=== PATIENT | female | born 1990 | race Caucasian/White ===

== ENCOUNTER 2016-07-04 23:51 | Emergency (ER) | payer BC ==
[~2016-07-04] VITALS: Ht 167.6 cm; Wt 53.0 kg
[~2016-07-04 23:51] MED LIST: CEPH-443 PO; FERR27TA; IBUP400T22 PO; PREN1TAB49
[2016-07-04 23:54] VITALS: Ht 167.6 cm; Wt 53.0 kg
--- NOTE | 2016-07-05 03:11 | ERD ---
ER Documentation Chief Complaint Date/Time DATE: 07/05/16 TIME: 03:09 Chief Complaint here to get right thigh stitches removed HPI This is a 26-year-old female presents to the ER for suture removal. Patient got her sutures 10 days ago she denies any fevers or chills. Patient obtained laceration while jumping over a fence. She took all of her antibiotics. She denies any redness or discharge from her wound. ROS 12 point review of systems was done, all negative except per HPI. Medications Home Meds Active Scripts Ibuprofen* (Motrin*) 400 Mg Tab, 400 MG PO Q6, #30 TAB Prov:LUCIUS STALLWORTH PA-C 06/23/16 Cephalexin* (Keflex*) 500 Mg Capsule, 500 MG PO QID for 7 Days, CAP Prov:LUCIUS STALLWORTH PA-C 06/23/16 Reported Medications Ferrous Sulfate (Iron) 1 Tab Tablet 10/15/10 Vits W-Ca,Fe,Fa(<1MG) () 1 Tab Tablet 10/15/10 Allergies Allergies: Coded Allergies: No Known Drug Allergy (Verified Allergy, Unknown, 06/22/16) PMhx/Soc History of Surgery: Yes (Episiotomy) Anesthesia Reaction: No Hx Neurological Disorder: No Hx Respiratory Disorders: No Hx Cardiac Disorders: No Hx Psychiatric Problems: No Hx Miscellaneous Medical Probl: Yes (UTI) Hx Alcohol Use: No Hx Substance Use: No Hx Tobacco Use: No Physical Exam Vitals Vital Signs Date Time Temp Pulse Resp B/P Pulse Ox O2 Delivery O2 Flow Rate FiO2 07/04/16 23:54 98.3 56 18 117/66 100 Physical Exam Const: [] Head: Atraumatic Resp: Clear to auscultation bilaterally Cardio: Regular rate and rhythm, no murmurs Skin: 4 simple interrupted sutures on the right upper posterior thigh Neur: Awake and alert Psych: Normal Mood and Affect Procedures/MDM Suture Removal by me: Sutures removed with tweezers and scissors without incident. Wound shows no evidence of infection, foreign body, neurologic injury, vascular injury, open joint or tendon laceration. Patient to follow up PRN. Departure Diagnosis: Primary Impression: Visit for suture removal Condition: Stable Patient Instructions: Suture Removal, No Complication Additional Instructions: Call your primary care doctor TOMORROW for an appointment during the next 1-2 days.See the doctor sooner or return here if your condition worsens before your appointment time. KYLAH BRITT Jul 05, 2016 03:10
== END 2016-07-05 03:30 | disposition home or self-care (01) ==
LOC: FTE 23:51
DX: Z48.01 Encounter for change or removal of surgical wound dressing (principal)
CPT/HCPCS: 99281

== ENCOUNTER 2018-01-27 22:53 | Emergency (ER) | END 2018-01-27 23:56 | disposition home or self-care (01) ==

== ENCOUNTER 2018-11-12 08:14 | Emergency (ER) | payer BC ==
[~2018-11-12] VITALS: Wt 57.4 kg
[~2018-11-12 08:14] MED LIST changes: +CYCL10TA7 PO; +HYDR-4011 PO; +IBUP-1542 PO; +IBUP-1561 PO; -IBUP400T22 PO
[2018-11-12 08:16] VITALS: BP 114/69; PULSE 67; RESP 18
[2018-11-12] MEDS ORDERED: CIPR500T4 PO (09:25)
[2018-11-12] MEDS ORDERED: CEFTRIAXONE 1 GM INJ IM ONE (09:30)
[2018-11-12] MEDS ORDERED: LIDOCAINE 1% (MPF) 5 ML VIAL INJ ONE (09:30)
--- NOTE | 2018-11-12 09:31 | ERD ---
ER Documentation Chief Complaint Chief Complaint back pain HPI 28-year-old female presenting with back pain x2 days. Patient states she has some mild burning with urination. Denies hematuria. Denies fevers. States that the pain is located only in the left back and is not in the right side. Has some mild significant tenderness with abdominal pain. Has never had this before. Medical problems denies. NKDA. Surgical history denies. Social history denies ROS All systems reviewed and are negative except as per history of present illness. Medications Home Meds Active Scripts Ciprofloxacin Hcl* (Ciprofloxacin Hcl*) 500 Mg Tablet, 500 MG PO BID for 10 Days, TAB Prov:RAMIRO CONTRERAS PA-C 11/12/18 Hydrocodone/Acetaminophen ([place] 5-325 Tablet) 1 Each Tablet, 1 TAB PO Q6H PRN for SEVERE PAIN LEVEL 7-10, #20 TAB Prov:EPIFANIO VASQUEZ NP 01/27/18 Cyclobenzaprine Hcl* (Cyclobenzaprine Hcl*) 10 Mg Tablet, 10 MG PO TID, #15 TAB Prov:EPIFANIO VASQUEZ NP 01/27/18 Ibuprofen* (Motrin*) 600 Mg Tab, 600 MG PO Q6H PRN for PAIN AND OR ELEVATED TEMP, #30 TAB Prov:EPIFANIO VASQUEZ NP 01/27/18 Ibuprofen* (Motrin*) 400 Mg Tab, 400 MG PO Q6, #30 TAB Prov:LUCIUS STALLWORTH PA-C 06/23/16 Cephalexin* (Keflex*) 500 Mg Capsule, 500 MG PO QID for 7 Days, CAP Prov:LUCIUS STALLWORTH PA-C 06/23/16 Reported Medications Ferrous Sulfate (Iron) 1 Tab Tablet 10/15/10 Vits W-Ca,Fe,Fa(<1MG) () 1 Tab Tablet 10/15/10 Allergies Allergies: Coded Allergies: No Known Drug Allergy (Verified Allergy, Unknown, 06/22/16) PMhx/Soc Medical and Surgical Hx: pt denies Medical Hx, pt denies Surgical Hx History of Surgery: Yes (Episiotomy) Anesthesia Reaction: No Hx Neurological Disorder: No Hx Respiratory Disorders: No Hx Cardiac Disorders: No Hx Psychiatric Problems: No Hx Miscellaneous Medical Probl: No Hx Alcohol Use: No Hx Substance Use: No Hx Tobacco Use: No FmHx Family History: No diabetes, No coronary disease, No other Physical Exam Vitals Vital Signs Date Temp Pulse Resp B/P (MAP) Pulse Ox O2 O2 Flow FiO2 Time Delivery Rate 11/12/18 98.6 67 18 114/69 99 08:16 (84) Physical Exam GENERAL: The patient is well-appearing, well-nourished, in no acute distress CHEST: Clear to auscultation bilaterally. There are no rales, wheezes or rhonchi. HEART: Regular rate and rhythm. No murmurs, clicks, rubs or gallops. No S3 or S4. ABDOMEN:Soft, nontender and nondistended. Good bowel sounds. No rebound or guarding. No gross peritonitis. No gross organomegaly or masses. BACK: Positive CVA tenderness on the left side. Results 24 hrs Laboratory Tests Test 11/12/18 08:49 11/12/18 08:50 POC Beta HCG, Qualitative NEGATIVE Bedside Urine pH (LAB) 8.5 Bedside Urine Protein (LAB) 2+ Bedside Urine Glucose (UA) Negative Bedside Urine Ketones (LAB) Negative Bedside Urine Blood 2+ Bedside Urine Nitrite (LAB) Negative Bedside Urine Leukocyte Esterase (L 3+ Current Medications Medications Dose Sig/Brooks Start Time Status Last (Trade) Ordered Route PRN Stop Time Admin Dose Reason Admin Ceftriaxone 1 gm ONCE ONCE 11/12/18 Sodium IM 09:30 (Rocephin) 11/12/18 09:31 Lidocaine 5 ml ONCE ONCE 11/12/18 (Xylocaine INJ 09:30 1% (Mpf)) 11/12/18 09:31 Procedures/MDM ER course: Rocephin given in ED. MDM: 28-year-old female presenting with back pain. Patient has findings consistent with urinary tract infection and concerning for pyelonephritis. Patient urine is sent for culture. Patient will be treated for pyelonephritis. Patient is told symptoms change or worsen to return immediately to the ER. I have low suspicion for nephrolithiasis or septic stone. I have low suspicion for other acute abdominal emergency. All questions answered at discharge Departure Diagnosis: Primary Impression: UTI (urinary tract infection) Condition: Stable Patient Instructions: Understanding Urinary Tract Infections (UTIs) Referrals: COMMUNITY CLINICS YOU HAVE RECEIVED A MEDICAL SCREENING EXAM AND THE RESULTS INDICATE THAT YOU DO NOT HAVE A CONDITION THAT REQUIRES URGENT TREATMENT IN THE EMERGENCY DEPARTMENT. FURTHER EVALUATION AND TREATMENT OF YOUR CONDITION CAN WAIT UNTIL YOU ARE SEEN IN YOUR DOCTORS OFFICE WITHIN THE NEXT 1-2 DAYS. IT IS YOUR RESPONSIBILITY TO MAKE AN APPOINTMENT FOR FOLOW-UP CARE. IF YOU HAVE A PRIMARY DOCTOR --you should call your primary doctor and schedule an appointment IF YOU DO NOT HAVE A PRIMARY DOCTOR YOU CAN CALL OUR PHYSICIAN REFERRAL HOTLINE AT IF YOU CAN NOT AFFORD TO SEE A PHYSICIAN YOU CAN CHOSE FROM THE FOLLOWING [facility]MER[facility], [facility] CL[facility]ICS [facility] [address] [facility] [address] [facility] [facility] [address] [facility] [address] [facility] [address] [facility] [address] [facility]. [address] Additional Instructions: FOLLOW UP WITH YOUR PRIMARY CARE PHYSICIAN TOMORROW.Return to this facility if you are not improving as expected. RAMIRO CONTRERAS PA-C November 12, 2018 09:31
== END 2018-11-12 09:54 | disposition home or self-care (01) ==
LOC: FTE 08:14
DX: N39.0 Urinary tract infection, site not specified (principal)
CPT/HCPCS: 81003; 81025; 87086; 96372; 99284; J0696; Z7610

== ENCOUNTER 2018-11-14 16:06 | Inpatient (IN) | payer BC ==
[~2018-11-14] VITALS: Ht 165.1 cm; Wt 54.0 kg
[~2018-11-14 16:06] MED LIST changes: +CIPR500T4 PO
[2018-11-14] MEDS ORDERED: CEFEPIME 2GM/50 ML (PMX) 50 ML IVPB STA (16:48)
[2018-11-14] MEDS ORDERED: SODIUM CHLORIDE 0.9% 1L BAG IV* STA (16:48)
--- NOTE | 2018-11-14 18:02 | ERD ---
ER Documentation Chief Complaint Chief Complaint Pt. here for re-check, urine culture + for E.coli HPI This patient is a 28-year-old female with no significant past medical history presenting to the emergency department for reevaluation after she was called with her results of urine culture just prior to arrival. Patient was seen here 2 days ago and was diagnosed with pyelonephritis and sent home with a prescription for ciprofloxacin. She was called back today because her culture showed bacterial resistance to ciprofloxacin. Patient states she has improved overall but still has some left-sided low back pain. She denies any fevers or chills. Symptoms are currently moderate in severity. ROS All systems reviewed and are negative except as per history of present illness. Medications Home Meds Active Scripts Ciprofloxacin Hcl* (Ciprofloxacin Hcl*) 500 Mg Tablet, 500 MG PO BID for 10 Days, TAB Prov:RAMIRO CONTRERAS PA-C 11/12/18 Hydrocodone/Acetaminophen ([place] 5-325 Tablet) 1 Each Tablet, 1 TAB PO Q6H PRN for SEVERE PAIN LEVEL 7-10, #20 TAB Prov:EPIFANIO VASQUEZ NP 01/27/18 Cyclobenzaprine Hcl* (Cyclobenzaprine Hcl*) 10 Mg Tablet, 10 MG PO TID, #15 TAB Prov:EPIFANIO VASQUEZ NP 01/27/18 Ibuprofen* (Motrin*) 600 Mg Tab, 600 MG PO Q6H PRN for PAIN AND OR ELEVATED TEMP, #30 TAB Prov:EPIFANIO VASQUEZ NP 01/27/18 Ibuprofen* (Motrin*) 400 Mg Tab, 400 MG PO Q6, #30 TAB Prov:LUCIUS STALLWORTH PA-C 06/23/16 Cephalexin* (Keflex*) 500 Mg Capsule, 500 MG PO QID for 7 Days, CAP Prov:LUCIUS STALLWORTH PA-C 06/23/16 Reported Medications Ferrous Sulfate (Iron) 1 Tab Tablet 10/15/10 Vits W-Ca,Fe,Fa(<1MG) () 1 Tab Tablet 10/15/10 Allergies Allergies: Coded Allergies: No Known Drug Allergy (Verified Allergy, Unknown, 06/22/16) PMhx/Soc History of Surgery: Yes (Episiotomy) Anesthesia Reaction: No Hx Neurological Disorder: No Hx Respiratory Disorders: No Hx Cardiac Disorders: No Hx Psychiatric Problems: No Hx Miscellaneous Medical Probl: No Hx Alcohol Use: No Hx Substance Use: No Hx Tobacco Use: No Smoking Status: Never smoker FmHx Family History: No diabetes Physical Exam Vitals Vital Signs Date Temp Pulse Resp B/P (MAP) Pulse Ox O2 O2 Flow FiO2 Time Delivery Rate 11/14/18 98.0 87 20 120/77 99 16:11 (91) Physical Exam Const: No acute distress Head: Atraumatic Eyes: Normal Conjunctiva ENT: Normal External Ears, Nose and Mouth. Neck: Full range of motion. No meningismus. Resp: Clear to auscultation bilaterally Cardio: Regular rate and rhythm, no murmurs Abd: Soft, non tender, non distended. Normal bowel sounds. No rebound tenderness or guarding. No McBurney's point tenderness. Skin: No petechiae or rashes Back: No midline or flank tenderness. Mild left-sided CVA tenderness. Ext: No cyanosis, or edema Neur: Awake and alert Psych: Normal Mood and Affect Result Diagram: 11/14/18 1713 Results 24 hrs Laboratory Tests Test 11/14/18 17:13 11/14/18 17:17 11/14/18 17:30 White Blood Count 5.8 10^3/ul Red Blood Count 5.16 10^6/ul Hemoglobin 14.0 g/dl Hematocrit 44.6 % Mean Corpuscular Volume 86.4 fl Mean Corpuscular Hemoglobin 27.1 pg Mean Corpuscular 31.4 g/dl Hemoglobin Concent Red Cell Distribution Width 12.8 % Platelet Count 350 10^3/UL Mean Platelet Volume 9.3 fl Immature Granulocytes % 0.200 % Neutrophils % 60.7 % Lymphocytes % 28.1 % Monocytes % 7.8 % Eosinophils % 2.2 % Basophils % 1.0 % Nucleated Red Blood Cells % 0.0 /100WBC Immature Granulocytes # 0.010 10^3/ul Neutrophils # 3.5 10^3/ul Lymphocytes # 1.6 10^3/ul Monocytes # 0.5 10^3/ul Eosinophils # 0.1 10^3/ul Basophils # 0.1 10^3/ul Nucleated Red Blood Cells # 0.0 10^3/ul Urine Color YELLOW Urine Clarity SLIGHTLY CLOUDY Urine pH 5.0 Urine Specific [place] 1.024 Urine Ketones NEGATIVE mg/dL Urine Nitrite NEGATIVE mg/dL Urine Bilirubin NEGATIVE mg/dL Urine Urobilinogen NEGATIVE mg/dL Urine Leukocyte Esterase 1+ [place]/ul Urine Microscopic RBC 47 /HPF Urine Microscopic WBC 22 /HPF Urine Squamous Epithelial Cells FEW /HPF Urine Mucus MANY /HPF Urine Hemoglobin 2+ mg/dL Urine Glucose NEGATIVE mg/dL Urine Total Protein NEGATIVE mg/dl POC Beta HCG, Qualitative NEGATIVE POC Venous Lactate 0.9 mmol/L Current Medications Medications Dose Sig/Brooks Start Time Status Last (Trade) Ordered Route PRN Stop Time Admin Dose Reason Admin Sodium 1,560 ml BOLUS OVER 2 11/14/18 DC 11/14/18 Chloride HOURS STAT 16:48 17:53 (NS) IV* 11/14/18 16:49 Cefepime HCl 50 ml @ ONCE STAT 11/14/18 DC 11/14/18 100 mls/hr IVPB 16:48 17:53 11/14/18 17:17 Procedures/MDM 28-year-old female presented to the emergency department for multidrug-resistant urinary tract infection. Patient was nontoxic and well-appearing and afebrile. Urine culture showed sensitivities to amikacin, Zosyn, meropenem and cefepime. Patient will require admission for IV antibiotics. I did discuss this case with attending ED physician, Dr. Arash Rice who further facilitated the admission process. Patient remained hemodynamically stable under my care with no new complaints during her ED course. Departure Diagnosis: Primary Impression: Urinary tract infection Condition: CINDI Harry PA-C November 14, 2018 18:02
[2018-11-14] MEDS ORDERED: ACETAMINOPHEN 325 MG TAB PO PRN (19:30)
[2018-11-14] MEDS ORDERED: ONDANSETRON 4 MG INJ IV PRN (19:30)
[2018-11-14] MEDS ORDERED: ONDANSETRON (ODT) 4 MG TAB ODT PRN (20:00)
[2018-11-14] MEDS ORDERED: ZOLPIDEM 5 MG TAB PO PRN (20:00)
[2018-11-14 21:27] VITALS: Ht 165.1 cm; Wt 54.0 kg
[2018-11-14 21:30] VITALS: BP 112/76; PULSE 78; RESP 18
[2018-11-15 02:33] VITALS: BP 105/56; PULSE 75; RESP 19
[2018-11-15 08:00] VITALS: BP 104/63; PULSE 71; RESP 17
[2018-11-15] MEDS ORDERED: ERTAPENEM SODIUM 1 GM in SOD CHLORIDE 0.9% 100 ML IVPB SCH (09:00)
[2018-11-15] MEDS ORDERED: ERTA1VIA3 IM (09:17)
--- NOTE | 2018-11-15 09:17 | PDOCDIS ---
Discharge Instructions CONDITION [id number] Patient Condition: [id number] Good HOME CARE INSTRUCTIONS: Iqlob2Sb Diet Instructions: [id number] Regular ACTIVITY: [id number] Activity Restrictions: [id number] No Restrictions FOLLOW UP/APPOINTMENTS Follow-up Plan pcp 1 week NIRAJ THAKUR MD November 15, 2018 09:17
[2018-11-15] MEDS ORDERED: LIDOCAINE 1% (MPF) 5 ML VIAL SC ONE (09:30)
[2018-11-15] MEDS ORDERED: ACETAMINOPHEN 325 MG TAB PO ONE (11:00)
--- NOTE | 2018-11-15 11:16 | HP ---
DATE OF ADMISSION: 11/15/2018 REASON FOR VISIT: ESBL urinary tract infection. HISTORY OF PRESENT ILLNESS: A 28-year-old female with unremarkable past medical history who was seen in the Emergency Room 2 days prior to admission and diagnosed with pyelonephritis. She was prescrib ed ciprofloxacin. Urine cultures grew E. coli ESBL. The patient was contacted and asked to return t o the Emergency Room. On review of systems, patient reports feeling better. She denies any dysuria. No fevers or chills. No abdominal pain, nausea or vomiting. She still has mild left flank tenderness. PAST MEDICAL HISTORY: History of UTI, TIA 2 years prior to admission. SOCIAL HISTORY: Patient lives at home. She has 2 children, ages 7 and 8. She denies tobacco use. PHYSICAL EXAMINATION: GENERAL: Well-developed, well-nourished young female who is in no apparent distress. VITAL SIGNS: Stable. She is afebrile. HEENT: Extraocular muscles intact. Pupils equal and reactive to light bilaterally. Sclerae are ani cteric. Oropharynx is clear and moist. NECK: Supple, no JVD, no carotid bruits. LUNGS: Clear to auscultation bilaterally. CARDIAC: Regular rate and rhythm. No murmurs, rubs or gallops. ABDOMEN: Soft, nontender, nondistended, normoactive bowel sounds. BACK: No CVA tenderness. EXTREMITIES: No clubbing, cyanosis, or edema. NEUROLOGICAL: Grossly nonfocal. ASSESSMENT: A 28-year-old female with Escherichia coli ESBL urinary tract infection. Urine culture was obtained on 11/12/2018. PLAN: Place in Med/Surg observation proceed with the PICC line placement. Continue IV Invanz. Home on IV Invanz x7 days. Discharge planning. Dictated By: NIRAJ MCGOWAN/NTS Conf#: [id number] DID#: [id number]
[2018-11-15 14:00] VITALS: BP 110/58; PULSE 73; RESP 18
--- NOTE | 2018-11-15 14:02 | DS ---
DATE OF ADMISSION: 11/15/2018 DATE OF DISCHARGE: 11/15/2018 DISCHARGE DIAGNOSIS: Extended-spectrum beta-lactamase Escherichia coli urinary tract infection. HOSPITAL COURSE: A 28-year-old female who was seen in the Emergency Room 2 days prior to admission a nd diagnosed with pyelonephritis. She was discharged home on Cipro. However, the urine cultures gre w ESBL Escherichia coli. The patient was asked to return to the Emergency Room. Following admission , she was started on IV Invanz. I ordered a PICC line placement. Patient will be discharged home wi th 7 days of IV Invanz 1 gram daily. Home health nurse was arranged. The patient was asked to follo w up with her PCP in 1 week. Dictated By: NIRAJ MCGOWAN/CHLOE Conf#: [id number] DID#: [id number]
--- NOTE | 2018-11-15 14:28 | RADRPT ---
Vent Rate: 68 bpm RR Interval: 0 msec WY Interval: 132 msec QRS Duration: 96 msec QT Interval: 380 msec QTC Interval: 404 msec P-R-T [place]: 77 - 97 - 68 degrees Normal sinus rhythm Rightward axis Incomplete right bundle branch block Borderline ECG Electronically Signed By: [facility]
== END 2018-11-15 19:44 | disposition home health service (06) | DRG 690 ==
LOC: FTE 16:06 → PP2 19:21 → OBSVTOIN 11-15 03:55 → UNDODISIN 11-15 19:44
PROVIDERS: ADMIT Internal Medicine; ATTEND Internal Medicine
DX: N39.0 Urinary tract infection, site not specified (principal); B96.20 Unspecified Escherichia coli [E. coli] as the cause of diseases classified elsewhere
CPT/HCPCS: 36415; 80053; 80061; 81001; 81025; 83605; 84484; 85025; 85610; 85730; 87086; 93005; 96365; G0378; J0692; J1335; J7030

== ENCOUNTER 2018-11-22 16:06 | Emergency (ER) | payer BC ==
[~2018-11-22] VITALS: Ht 170.2 cm; Wt 54.8 kg
[~2018-11-22 16:06] MED LIST changes: -CEPH-443 PO; -CIPR500T4 PO; -CYCL10TA7 PO; +ERTA1VIA3 IM; -HYDR-4011 PO; -IBUP-1542 PO; -IBUP-1561 PO; -PREN1TAB49
[2018-11-22 16:41] VITALS: BP 110/72; PULSE 69; RESP 16; Ht 170.2 cm; Wt 54.8 kg
--- NOTE | 2018-11-22 17:50 | ERD ---
ER Documentation Chief Complaint Chief Complaint RECHECK FOR KIDNEY INFECTION (PYLO), HAS MIDLINE AND IS RECEIVING IV ABX HPI 28-year-old female with no reported past medical surgical history presents for recheck following discharge from hospital on November 15 being admitted for IV robotic infusion for treatment of pyelonephritis. Patient was supposed to follow-up with her PMD was unable to get an appointment today. She is scheduled for her last dose of IV antibiotics home infusion with ertapenem later on this evening. She denies any concerning symptoms and reports improvement in her symptoms since being treated, denying fever, chills, urinary symptoms. ROS All systems reviewed and are negative except as per history of present illness. Medications Home Meds Active Scripts Ertapenem Sodium (Invanz) 1 Gm Vial, 1 GM IM DAILY for 7 Days, VIAL Prov:NIRAJ THAKUR MD 11/15/18 Reported Medications Ferrous Sulfate (Iron) 1 Tab Tablet 10/15/10 Discontinued Reported Medications Vits W-Ca,Fe,Fa(<1MG) () 1 Tab Tablet 10/15/10 Discontinued Scripts Ciprofloxacin Hcl* (Ciprofloxacin Hcl*) 500 Mg Tablet, 500 MG PO BID for 10 Days, TAB Prov:RAMIRO CONTRERAS PA-C 11/12/18 Hydrocodone/Acetaminophen ([place] 5-325 Tablet) 1 Each Tablet, 1 TAB PO Q6H PRN for SEVERE PAIN LEVEL 7-10, #20 TAB Prov:EPIFANIO VASQUEZ NP 01/27/18 Cyclobenzaprine Hcl* (Cyclobenzaprine Hcl*) 10 Mg Tablet, 10 MG PO TID, #15 TAB Prov:EPIFANIO VASQUEZ NP 01/27/18 Ibuprofen* (Motrin*) 600 Mg Tab, 600 MG PO Q6H PRN for PAIN AND OR ELEVATED TEMP, #30 TAB Prov:EPIFANIO VASQUEZ NP 01/27/18 Ibuprofen* (Motrin*) 400 Mg Tab, 400 MG PO Q6, #30 TAB Prov:LUCIUS STALLWORTH PA-C 06/23/16 Cephalexin* (Keflex*) 500 Mg Capsule, 500 MG PO QID for 7 Days, CAP Prov:LUCIUS STALLWORTH PA-C 06/23/16 Allergies Allergies: Coded Allergies: No Known Drug Allergy (Verified Allergy, Unknown, 06/22/16) PMhx/Soc History of Surgery: Yes (Episiotomy) Anesthesia Reaction: No Hx Neurological Disorder: No Hx Respiratory Disorders: No Hx Cardiac Disorders: No Hx Psychiatric Problems: No Hx Miscellaneous Medical Probl: No Hx Alcohol Use: No Hx Substance Use: No Hx Tobacco Use: No FmHx Family History: No diabetes, No coronary disease, No other Physical Exam Vitals Vital Signs Date Temp Pulse Resp B/P (MAP) Pulse Ox O2 O2 Flow FiO2 Time Delivery Rate 11/22/18 98.5 69 16 110/72 99 16:41 (85) Physical Exam I have reviewed the triage vital signs. Const: Well nourished, well developed, appears stated age Eyes: PERRL, no conjunctival injection HENT: NCAT, Neck supple without meningismus CV: RRR, Warm, well-perfused extremities RESP: CTAB, Unlabored respiratory effort GI: soft, non-tender, non-distended, no masses MSK: No gross deformities appreciated Skin: Warm, dry. No rashes Neuro: grossly non focal Psych: Appropriate mood and affect. Procedures/MDM 28-year-old female presents for recheck after discharge from hospital after being treated for pyelonephritis with IV antibiotics. She is doing well post discharge and is scheduled for her last IV administration of a ertapenem later on today. I will provide her documentation that she is to complete her course of antibiotics and have her midline removed. Informed patient she needs to follow-up with her PMD within 1 to 2 weeks. DISPOSITION PLAN: We discussed follow up with the patient's primary care doctor within 24 to 48 hours. Patient counseled regarding my diagnostic impression and care plan. Prior to discharge all questions answered. Pt agrees with treatment plan and understands strict return precautions. Precautionary instructions provided including instructions to return to the ER if not improving or for any worsening or changing symptoms or concerns. Disclaimer: Inadvertent spelling and grammatical errors are likely due to EHR /dictation software use and do not reflect on the overall quality of patient care. Also, please note that the electronic time recorded on this note does not necessarily reflect the actual time of the patient encounter. Departure Diagnosis: Primary Impression: Hospital discharge follow-up Condition: Stable Patient Instructions: Pyelonephritis, Female (Adult) Referrals: COMMUNITY CLINICS YOU HAVE RECEIVED A MEDICAL SCREENING EXAM AND THE RESULTS INDICATE THAT YOU DO NOT HAVE A CONDITION THAT REQUIRES URGENT TREATMENT IN THE EMERGENCY DEPARTMENT. FURTHER EVALUATION AND TREATMENT OF YOUR CONDITION CAN WAIT UNTIL YOU ARE SEEN IN YOUR DOCTORS OFFICE WITHIN THE NEXT 1-2 DAYS. IT IS YOUR RESPONSIBILITY TO MAKE AN APPOINTMENT FOR FOLOW-UP CARE. IF YOU HAVE A PRIMARY DOCTOR --you should call your primary doctor and schedule an appointment IF YOU DO NOT HAVE A PRIMARY DOCTOR YOU CAN CALL OUR PHYSICIAN REFERRAL HOTLINE AT IF YOU CAN NOT AFFORD TO SEE A PHYSICIAN YOU CAN CHOSE FROM THE FOLLOWING [facility] [address] [place] [address] [facility] [address] [place] [facility] [address] [facility] [address] [facility] [address] [facility] [facility]. [address] Additional Instructions: Call your primary care doctor TOMORROW for an appointment during the next 2-3 days.See the doctor sooner or return here if your condition worsens before your appointment time. Patient was seen and evaluated in the emergency room. She has no signs or symptoms of active infection. She may have midline removed after final dose of antibiotics and follow-up with her PMD. After completion of your antibiotics please arrange follow-up with your PMD within 1 to 2 weeks. DONYA BYERS PA-C November 22, 2018 17:50
== END 2018-11-22 18:58 | disposition home or self-care (01) ==
LOC: FTE 16:06
DX: Z09 Encounter for follow-up examination after completed treatment for conditions other than malignant neoplasm (principal)
CPT/HCPCS: 99282